=== PATIENT | male | born 1945 | race Asian ===

== ENCOUNTER → 2017-03-11 | Outpatient (CLI) | payer OTHER ==
[~2017-03-11] MED LIST: ALBUAER2 INH; ASPCH81X PO; ATOR-54 PO; ATV/1 PO; BUSP5TAB59 PO; CYCL5TAB PO; FERR18TA2 PO; FLUT0.15 NAE; LEVO-14 PO; MULTTAB5 PO; OPTIRAY 320 IV PRN; PRT/20 PO
--- NOTE | 2017-03-11 12:11 | DIAGNOSTIC IMAGING REPORT ---
CT soft tissue neck SOFT TISSUE NECK WITH CLINICAL HISTORY: MULTIPLE MYELOMA TECHNIQUE: Transaxial acquisition with multi axial reformatted images COMPARISON STUDY: 08/19/2007 FINDINGS: Major salivary glands are symmetric. There is no significant cervical adenopathy. Sternocleidomastoid musculature is symmetric. Glottic and subglottic regions are unremarkable. His note is made of a lipoma surrounding the posterior left mandible. Note is made of lytic defects involving the left central aspect of C2 and associated posterior arch. Minimal findings seen in the right posterior arch of C4. There is small lucency posterior aspect of the C4 unchanged from the prior study. There is a small lucency involving the posterior aspect of C3 also similar. IMPRESSION: 1. Findings consistent with developing bony metastatic change primarily from C2 through C4. 2. Most prominent findings appear to involve the left central aspect of the C2 vertebral body. 3. The Remainder of the soft tissue neck is unremarkable. Electronically signed by: Ean King M.D. 03/11/2017 12:09 PM Dictated Date/Time: 03/11/2017 12:02 PM
== END | disposition home or self-care (01) ==
LOC: C.CTS 11:23
PROVIDERS: ATTEND Internal Medicine Hematology & Oncology
DX: C90.00 Multiple myeloma not having achieved remission (principal)

== ENCOUNTER → 2017-04-01 | Outpatient (CLI) | payer OTHER ==
[~2017-04-01] MED LIST changes: -OPTIRAY 320 IV PRN
--- NOTE | 2017-04-01 10:19 | DIAGNOSTIC IMAGING REPORT ---
SKELETAL SURVEY COMPLETE CLINICAL HISTORY: C90.0,MUTIPLE MYELOMA. COMPARISON STUDY: Chest 12/01/2014. FINDINGS: 17 images. The lungs are clear. The heart is normal in size. Right high convexity craniectomy defect with overlying metallic mesh. Severe disc space narrowing at L4-L5 and mild disc space narrowing at L5-S1. No fractures within the spine. No suspicious lytic or blastic osseous lesions within the visualized osseous structures. The lucent lesions within the cervical spine seen on the prior neck CT are not well identified by this modality. IMPRESSION: 1. Large defect within the right high convexity of the calvarium consistent with postoperative changes. 2. The lucent lesions seen within the cervical spine on the prior study are not well evaluated by this modality. 3. No suspicious lytic or blastic osseous lesions within the visualized osseous structures Electronically signed by: Jhon Stockton M.D. 04/01/2017 10:17 AM Dictated Date/Time: 04/01/2017 10:11 AM
== END | disposition home or self-care (01) ==
LOC: C.RAD 08:56
PROVIDERS: ATTEND Nurse Practitioner Family
DX: C90.00 Multiple myeloma not having achieved remission (principal)

== ENCOUNTER → 2017-04-08 | Outpatient (CLI) | payer OTHER ==
--- NOTE | 2017-04-08 14:16 | DIAGNOSTIC IMAGING REPORT ---
ULTRASOUND-GUIDED FINE-NEEDLE ASPIRATION BIOPSY OF A RIGHT PAROTID NODULE CLINICAL HISTORY: K11.9 parotid mass COMPARISON STUDY: CT scan dated 03/11/2017, outside CT scan dated 04/07/2016, outside MRI the brain dated 03/26/2016. FINDINGS: The study was scheduled for Dr. Rich to perform. Dr. Rich was unfortunately on vacation. After discussing the situation with the patient, the patient elected to proceed with the biopsy. The patient was referred for possible bilateral parotid biopsy. An ultrasound was performed which revealed a right anterior lobe parotid mass. No parotid mass was visualized on the left. Review of the prior CT scan revealed a left-sided masseter muscle lipoma. There were no targetable lesions for a left-sided ultrasound-guided biopsy. The risks of the procedure were explained to the patient and informed consent was obtained. The patient was prepped in a sterile fashion. The skin over the patient's right parotid gland nodule was anesthetized with 1% lidocaine. Under ultrasound guidance, 2 passes into the patient's right parotid gland nodule were performed utilizing a 25-gauge needle. There were no immediate complications. Preliminary pathologic review indicated satisfactory material for diagnosis. IMPRESSION: Successful ultrasound-guided fine-needle aspiration of a right parotid nodule Electronically signed by: José Miguel Daigle M.D. 04/08/2017 2:14 PM Dictated Date/Time: 04/08/2017 2:08 PM
== END | disposition home or self-care (01) ==
LOC: C.ULTR 12:54
DX: K11.9 Disease of salivary gland, unspecified (principal)

== ENCOUNTER → 2017-06-03 | Outpatient (CLI) | payer OTHER | END | disposition home or self-care (01) | LOC: C.LABSPEC 17:09 | PROVIDERS: ATTEND Internal Medicine | DX: E55.9 Vitamin D deficiency, unspecified (principal); G47.62 Sleep related leg cramps; C90.00 Multiple myeloma not having achieved remission ==

== ENCOUNTER → 2017-11-04 | Outpatient (CLI) | payer OTHER ==
[2017-11-04 09:37] LABS: HEMOGLOBIN A1C 6.2 % (4.5-5.6)
== END | disposition home or self-care (01) ==
LOC: C.LAB 10:39
PROVIDERS: ATTEND Internal Medicine
DX: E11.9 Type 2 diabetes mellitus without complications (principal); E78.5 Hyperlipidemia, unspecified

== ENCOUNTER 2017-12-22 11:59 | Inpatient (IN) | payer OTHER ==
[~2017-12-22] VITALS: Ht 162.6 cm; Wt 63.9 kg
[~2017-12-22 11:59] MED LIST changes: -ATOR-54 PO; -FERR18TA2 PO; -LEVO-14 PO; -MULTTAB5 PO
[2017-12-22] MEDS ORDERED: BUSP5TAB59 PO (12:21)
[2017-12-22] MEDS ORDERED: GUAISYP4 PO (12:21)
[2017-12-22] MEDS ORDERED: [UNRECOGNIZED DRUG - CODE] (12:21)
[2017-12-22] MEDS ORDERED: LEVO-366 PO (12:21)
[2017-12-22] MEDS ORDERED: PHEN-880 (12:21)
[2017-12-22] MEDS ORDERED: ALBU18002 INH (12:21)
[2017-12-22] MEDS ORDERED: LENA2.5C PO (12:21)
[2017-12-22] MEDS ORDERED: SODIUM CHLORIDE 0.9% 1000ML 1,000 ML IV STA ×3 (12:25→15:29)
[2017-12-22] MEDS ORDERED: ALBUT/IPRATROP 3MG/0.5MG NEB 3 ML VIAL INH STA (12:25)
[2017-12-22] MEDS ORDERED: FENTANYL CITRATE INJ 50 MCG/1 ML 2 ML VIAL IV STA (12:31)
[2017-12-22] MEDS ORDERED: OPTIRAY 320 IV PRN (12:45)
--- NOTE | 2017-12-22 12:56 | DIAGNOSTIC IMAGING REPORT ---
CHEST ONE VIEW PORTABLE CLINICAL HISTORY: Atypical chest pain COMPARISON STUDY: No previous studies for comparison. FINDINGS: The cardiac and mediastinal contours are normal. There is no evidence of focal pulmonary consolidation. There is no evidence of failure. No pleural effusions are visualized.[ There is very slight prominence the basal interstitial markings, likely atelectatic. IMPRESSION: No active disease in the chest. Electronically signed by: José Miguel Daigle M.D. 12/22/2017 12:55 PM Dictated Date/Time: 12/22/2017 12:54 PM
[2017-12-22] MEDS ORDERED: MULTTAB5 PO (13:18)
[2017-12-22] MEDS ORDERED: FERR18TA2 PO (13:18)
[2017-12-22 13:24] LABS: BASO % 0.2 %; BASO ABS # 0.01 K/uL (0-0.2); HEMATOCRIT 42.7 % (42-52); HEMOGLOBIN 14.7 g/dL (14.0-18.0); IG# 0.01 K/uL (0.00-0.02); LYMPH % 12.8 %; LYMPH ABS # 0.69 K/uL (1.2-3.4); MEAN CELL VOLUME 94.9 fL (80-100); MEAN CORPUSCULAR HEMOGLOBIN 32.7 pg (25-34); MEAN CORPUSCULAR HGB CONC 34.4 g/dl (32-36); NEUT % 73.8 %; NEUT ABS # 3.98 K/uL (1.4-6.5); PLATELET COUNT 104 K/uL (130-400); RED CELL DISTRIBUTION WIDTH CV 13.9 % (11.5-14.5); RED CELL DISTRIBUTION WIDTH SD 48.1 fL (36.4-46.3); WHITE BLOOD COUNT 5.39 K/uL (4.8-10.8)
[2017-12-22 13:45] LABS: ALBUMIN 3.8 gm/dl (3.4-5.0); ALT/SGPT 85 U/L (12-78); AST/SGOT 37 U/L (15-37); BLOOD UREA NITROGEN 21 mg/dl (7-18); CALCIUM 9.2 mg/dl (8.5-10.1); CARBON DIOXIDE 24 mmol/L (21-32); CREATININE 1.25 mg/dl (0.60-1.40); GLUCOSE 137 mg/dl (70-99); LIPASE 82 U/L (73-393); SODIUM 131 mmol/L (136-145)
[2017-12-22 13:50] LABS: ALKALINE PHOSPHATASE 62 U/L (45-117)
--- NOTE | 2017-12-22 14:29 | DIAGNOSTIC IMAGING REPORT ---
(CHEST FOR PE) ANGIO WITH CT DOSE: 384.34 mGycm HISTORY: 72 years-old Male with acute dyspnea and chest pain. TECHNIQUE: Multiple CTA images of the chest were obtained after the intravenous administration of ml Optiray 320. Coronal and sagittal MIPS were obtained from the axial data set and were submitted for review. A dose lowering technique was utilized adhering to the principles of ALARA. COMPARISON: Chest radiograph 12/22/2017, CT chest 08/19/2007. FINDINGS: CTA: There is mild multichamber cardiac enlargement. No pericardial effusion. Coronary arterial disease. Thoracic aorta is normal in both course and caliber without aneurysm or dissection. Mild to moderate mixed plaquing of the thoracic aortic arch and proximal great vessels which appear to be patent. Mild tortuosity of the descending thoracic aorta. The pulmonary arterial tree is opacified to level of the subsegmental branches and demonstrates no focal filling defects to suggest pulmonary thromboembolic disease. CT CHEST: Thyroid appears homogeneous without dominant nodule. No pathologic adenopathy of the chest identified. No pneumothorax or pleural effusion. Moderate emphysema. Multifocal groundglass and consolidative opacities within a bronchovascular distribution are noted within the basal left lower lobe, primarily involving the posterior basal and anteromedial basal segments. To a lesser degree, there is minimal bronchovascular distribution of groundglass opacities within the basal right lower lobe. No suspicious pulmonary nodules or masses identified. Central airways are patent. No acute abnormality of the imaged upper abdomen. Prior cholecystectomy. Nodular thickening of the adrenal glands with 1.8 cm low attenuating left adrenal gland lesion suggesting adenoma. Probable adenoma on the right as well, 1.5 cm. Soft tissues are unremarkable. The bones appear intact. IMPRESSION: 1. Bronchovascular distribution of groundglass and consolidative opacities within the basal segments of the left greater than right lower lobes suggest bronchopneumonia or less likely aspiration pneumonitis. 2. No acute aortic pathology or evidence of pulmonary thromboembolic disease. 3. Emphysema. 4. No pathologic adenopathy. The above report was generated using voice recognition software. It may contain grammatical, syntax or spelling errors. Electronically signed by: Temo Thao M.D. 12/22/2017 2:28 PM Dictated Date/Time: 12/22/2017 2:20 PM
[2017-12-22 14:33] LABS: INFLUENZA A PCR Neg for Influ A (NEG); INFLUENZA B PCR Neg for Influ B (NEG)
[2017-12-22] MEDS ORDERED: CEFEPIME IV 2,000 MG in DEXTROSE 5% 100ML 100 ML IV STA (15:28)
--- NOTE | 2017-12-22 15:34 | EMERGENCY ROOM VISIT NOTE ---
History Report prepared by Maritza: Kevin Akins Under the Supervision of: Dr. Thad Galvan M.D. First contact with patient: 12:21 Chief Complaint: COUGH Stated Complaint: CRAMPING RIB CAGES History of Present Illness The patient is a 72 year old male who presents to the Emergency Room with complaints of a persistent cough beginning three weeks ago. The patient also complains of a "cramping" pain in his bilateral ribs (worse on right), and occasionally in his neck which began a few days ago. His pain is only present with coughing. He feels short of breath as well. The patient has a history of multiple myeloma for which he is currently receiving chemotherapy. He was diagnosed with a sinus infection by his PCP recently and was started on antibiotics. Nothing has improved his symptoms. He is on aspirin, but denies use of any other blood thinners. The patient has no history of blood clots or recent surgery. He denies fevers, or chills. He sees Dr. Mcdonald of oncology for his cancer treatment. The patient is a former smoker (quit 22 years ago). He has used inhalers, Mucinex, and Neti-spray at home. Source of History: patient Onset: Three weeks ago Quality: other (cough) Timing: other (persistent) Modifying Factors (Relieving): other (none) Associated Symptoms: + SOB, No fevers, No chills Note: The patient also complains of a "cramping" pain in his bilateral ribs (worse on right), and occasionally in his neck which began a few days ago Review of Systems See HPI for pertinent positives and negatives. A total of ten systems were reviewed and were otherwise negative. Past Medical & Surgical Medical Problems: (1) DM type 2 (diabetes mellitus, type 2) (2) GERD (gastroesophageal reflux disease) (3) Hypertension (4) Multiple myeloma Surgical Problems: (1) H/O arthroscopic knee surgery (2) H/O sinus surgery (3) History of carpal tunnel surgery (4) History of cholecystectomy (5) Hx of cholecystectomy (6) S/P bunionectomy Family History Diabetes mellitus FH: cancer FH: heart disease Hypertension Social History Smoking Status: Never Smoker Alcohol Use: occasionally Marital Status: Housing Status: lives with family Occupation Status: employed Current/Historical Medications Scheduled Acyclovir (Acyclovir), 1 TAB PO DAILY Aspirin (Aspirin Chewable), 81 MG PO QPM Atorvastatin (Lipitor), 1 TAB PO DAILY Buspirone Hcl (Buspirone Hcl), 5 MG PO DAILY Buspirone Hcl (Buspirone Hcl), 10 MG PO QPM Calcium/Vitamin D (Os-Mauricio 500 Plus D), 1 TAB PO BID Fexofenadine Hcl (Almita Allergy), 1 TAB PO DAILY Fluticasone Propionate (Nasal) (Flonase Allergy Relief), 1 SPRAY ASHLEY QAM Lenalidomide (Revlimid), 5 MG PO DAILY Levofloxacin (Levaquin), 500 MG PO DAILY Multiple Vitamins W/ Minerals (Centrum), 1 TAB PO DAILY Scheduled PRN Albuterol Sulfate (Proair Respiclick), 2 PUFF INH QID PRN for SOB/Wheezing Cyclobenzaprine Hcl (Flexeril), 5 MG PO HS PRN for PRN Esomeprazole Magnesium (Nexium), 1 CAP PO DAILY PRN for Dyspepsia Guaifenesin/Codeine (Robitussin-Ac Syrup), 5 ML PO Q4H PRN for Cough Lorazepam (Ativan), 1 MG PO TID PRN for Anxiety Pseudoephedrine-Guaifenesin (Mucinex D), 1 TAB PO BID PRN for Cough Miscellaneous Medications Zoledronic Acid (Zometa) Allergies Coded Allergies: Adhesives (Verified Allergy, Mild, RASH, 06/01/16) bandaides cause rash NO KNOWN DRUG ALLERGIES (Verified Allergy, Mild, ., 06/01/16) Physical Exam Vital Signs Date Time Temp Pulse Resp B/P (MAP) Pulse Ox O2 Delivery O2 Flow Rate FiO2 12/22/17 16:14 100 20 126/77 97 Room Air 12/22/17 15:09 75 20 117/59 95 Room Air 12/22/17 14:23 94 30 125/77 97 Room Air 12/22/17 12:34 94 Room Air 12/22/17 12:33 91 12/22/17 12:05 36.4 110 20 122/80 94 Room Air Physical Exam GENERAL: Awake, alert, fatigued, uncomfortable-appearing, in no distress HENT: Normocephalic, atraumatic. Oropharynx unremarkable other than dry mucous membranes. EYES: Normal conjunctiva. Sclera non-icteric. NECK: Supple. No nuchal rigidity. FROM. No JVD. RESPIRATORY: Diminished at bases and otherwise clear to auscultation. CARDIAC: Regular rate, normal rhythm. Extremities warm and well perfused. Pulses equal. ABDOMEN: Soft, non-distended. No tenderness to palpation. No rebound or guarding. No masses. RECTAL: Deferred. MUSCULOSKELETAL: Chest examination reveals no tenderness. The back is symmetrical on inspection without obvious abnormality. There is no CVA tenderness to palpation. No joint edema. LOWER EXTREMITIES: Calves are equal size bilaterally and non-tender. No edema. No discoloration. NEURO: Normal sensorium. No sensory or motor deficits noted. SKIN: No rash or jaundice noted. Medical Decision & Procedures ER Provider Diagnostic Interpretation: Radiology results as stated below per my review and radiologist interpretation: (CHEST FOR PE) ANGIO WITH FINDINGS: CTA: There is mild multichamber cardiac enlargement. No pericardial effusion. Coronary arterial disease. Thoracic aorta is normal in both course and caliber without aneurysm or dissection. Mild to moderate mixed plaquing of the thoracic aortic arch and proximal great vessels which appear to be patent. Mild tortuosity of the descending thoracic aorta. The pulmonary arterial tree is opacified to level of the subsegmental branches and demonstrates no focal filling defects to suggest pulmonary thromboembolic disease. CT CHEST: Thyroid appears homogeneous without dominant nodule. No pathologic adenopathy of the chest identified. No pneumothorax or pleural effusion. Moderate emphysema. Multifocal groundglass and consolidative opacities within a bronchovascular distribution are noted within the basal left lower lobe, primarily involving the posterior basal and anteromedial basal segments. To a lesser degree, there is minimal bronchovascular distribution of groundglass opacities within the basal right lower lobe. No suspicious pulmonary nodules or masses identified. Central airways are patent. No acute abnormality of the imaged upper abdomen. Prior cholecystectomy. Nodular thickening of the adrenal glands with 1.8 cm low attenuating left adrenal gland lesion suggesting adenoma. Probable adenoma on the right as well, 1.5 cm. Soft tissues are unremarkable. The bones appear intact. IMPRESSION: 1. Bronchovascular distribution of groundglass and consolidative opacities within the basal segments of the left greater than right lower lobes suggest bronchopneumonia or less likely aspiration pneumonitis. 2. No acute aortic pathology or evidence of pulmonary thromboembolic disease. 3. Emphysema. 4. No pathologic adenopathy. The above report was generated using voice recognition software. It may contain grammatical, syntax or spelling errors. Electronically signed by: Temo Thao M.D. 12/22/2017 2:28 PM CHEST ONE VIEW PORTABLE FINDINGS: The cardiac and mediastinal contours are normal. There is no evidence of focal pulmonary consolidation. There is no evidence of failure. No pleural effusions are visualized.[ There is very slight prominence the basal interstitial markings, likely atelectatic. IMPRESSION: No active disease in the chest. Electronically signed by: José Miguel Daigle M.D. 12/22/2017 12:55 PM Laboratory Results 12/22/17 13:05 Red Blood Count 4.50, Mean Corpuscular Volume 94.9, Mean Corpuscular Hemoglobin 32.7, Mean Corpuscular Hemoglobin Concent 34.4, Mean Platelet Volume 9.0, Neutrophils (%) (Auto) 73.8, Lymphocytes (%) (Auto) 12.8, Monocytes (%) (Auto) 13.0, Eosinophils (%) (Auto) 0.0, Basophils (%) (Auto) 0.2, Neutrophils # (Auto ) 3.98, Lymphocytes # (Auto) 0.69, Monocytes # (Auto) 0.70, Eosinophils # (Auto ) 0.00, Basophils # (Auto) 0.01 12/22/17 13:05 Test 12/22/17 13:04 12/22/17 13:05 12/22/17 16:00 Influenza Type A (RT-PCR) Neg for Influ A (NEG) Influenza Type B (RT-PCR) Neg for Influ B (NEG) White Blood Count 5.39 K/uL (4.8-10.8) Red Blood Count 4.50 M/uL (4.7-6.1) Hemoglobin 14.7 g/dL (14.0-18.0) Hematocrit 42.7 % (42-52) Mean Corpuscular Volume 94.9 fL (80-100) Mean Corpuscular Hemoglobin 32.7 pg (25-34) Mean Corpuscular Hemoglobin Concent 34.4 g/dl (32-36) Platelet Count 104 K/uL (130-400) Mean Platelet Volume 9.0 fL (7.4-10.4) Neutrophils (%) (Auto) 73.8 % Lymphocytes (%) (Auto) 12.8 % Monocytes (%) (Auto) 13.0 % Eosinophils (%) (Auto) 0.0 % Basophils (%) (Auto) 0.2 % Neutrophils # (Auto) 3.98 K/uL (1.4-6.5) Lymphocytes # (Auto) 0.69 K/uL (1.2-3.4) Monocytes # (Auto) 0.70 K/uL (0.11-0.59) Eosinophils # (Auto) 0.00 K/uL (0-0.5) Basophils # (Auto) 0.01 K/uL (0-0.2) RDW Standard Deviation 48.1 fL (36.4-46.3) RDW Coefficient of Variation 13.9 % (11.5-14.5) Immature Granulocyte % (Auto) 0.2 % Immature Granulocyte # (Auto) 0.01 K/uL (0.00-0.02) Anion Gap 9.0 mmol/L (3-11) Est Creatinine Clear Calc Drug Dose 44.8 ml/min Estimated GFR () 66.3 Estimated GFR (Non- 57.2 BUN/Creatinine Ratio 16.6 (10-20) Calcium Level 9.2 mg/dl (8.5-10.1) Total Bilirubin 0.6 mg/dl (0.2-1) Direct Bilirubin 0.2 mg/dl (0-0.2) Aspartate Amino Transf (AST/SGOT) 37 U/L (15-37) Alanine Aminotransferase (ALT/SGPT) 85 U/L (12-78) Alkaline Phosphatase 62 U/L (45-117) Troponin I < 0.015 ng/ml (0-0.045) Pro-B-Type Natriuretic Peptide 80 pg/ml (0-900) Total Protein 8.0 gm/dl (6.4-8.2) Albumin 3.8 gm/dl (3.4-5.0) Lipase 82 U/L (73-393) Lactic Acid Level 2.0 mmol/L (0.4-2.0) Laboratory results reviewed by me Medications Administered Medications (Trade) Dose Ordered Sig/Rolando Route Start Time Stop Time Status Last Admin Dose Admin Sodium Chloride 1,000 ml @ 999 mls/hr Q1H1M STAT IV 12/22/17 12:25 12/22/17 13:25 DC 12/22/17 13:17 999 MLS/HR Albuterol/ Ipratropium (Duoneb) 3 ml NOW STAT INH 12/22/17 12:25 12/22/17 12:32 DC 12/22/17 12:58 3 ML Fentanyl Citrate (Fentanyl Inj) 50 mcg NOW STAT IV 12/22/17 12:31 12/22/17 12:34 DC 12/22/17 13:15 50 MCG Sodium Chloride 1,000 ml @ 999 mls/hr Q1H1M STAT IV 12/22/17 12:31 12/22/17 13:31 DC 12/22/17 13:19 999 MLS/HR Cefepime HCl 2000 mg/Dextrose 122 ml @ 200 mls/hr NOW STAT IV 12/22/17 15:28 12/22/17 16:04 DC 12/22/17 16:13 200 MLS/HR Sodium Chloride 1,000 ml @ 999 mls/hr Q1H1M STAT IV 12/22/17 15:29 12/22/17 16:29 DC 12/22/17 15:58 999 MLS/HR ECG Per My Interpretation Indication: chest pain Rate (beats per minute): 89 Rhythm: normal sinus Findings: other (Normal axis. No ST elevation.) ED Course 1223: The patient was evaluated in room C5. A complete history and physical exam was performed. 1525: Upon reexamination, the patient was resting comfortably. I discussed the test results and treatment plan with him. The patient will be evaluated for further management. Medical Decision I reviewed the patient's past medical history, medications, and the nursing notes as described above. Differential diagnosis: Etiologies such as cardiac ischemia, aortic dissection, pulmonary embolism, pneumonia, pneumothorax, musculoskeletal, infections, pericarditis, myocarditis , esophageal rupture, gastrointestinal, as well as others were entertained. The patient is a 72-year-old gentleman with a past medical history of multiple myeloma currently undergoing treatment with Revlimid presents emergency department with worsening right-sided chest pain in the setting of cough congestion that has been ongoing for several weeks recently put on a oral course of Levaquin on Tuesday per hpi. On arrival the patient is fatigued appearing but no acute distress, afebrile stable vital signs. EKG is unremarkable. WBC within normal limits. Patient has mild ZAY with creatinine 1.2 and BUN of [address] PE negative for PE however does demonstrate bilateral bronchial pneumonia. The patient's age, and comorbidities of multiple myeloma on treatment, the setting of these findings with a curb 65 score of 2 will admit the patient for IV antibiotics. Given worsening symptoms in the setting of being on Levaquin will broaden coverage to cefepime. MRSA screen ordered to help inform possible need for vancomycin. Blood cultures ordered. Lactate 2.0. Case was discussed with Jaja Amaral PA-C, who admit the patient for further management. Medication Reconcilliation Current Medication List: was personally reviewed by me Blood Pressure Screening Patient's blood pressure: Normal blood pressure Blood pressure disposition: Did not require urgent referral Consults Time Called: 1525 Consulting Physician: Natalie Wilkinson Hospitalist Returned Call: 1530 I discussed the patient with Natalie Wilkinson will evaluate the patient for further treatment. Impression Primary Impression: Bronchopneumonia Scribe Attestation The scribe's documentation has been prepared under my direction and personally reviewed by me in its entirety. I confirm that the note above accurately reflects all work, treatment, procedures, and medical decision making performed by me. Departure Information Dispostion Being Evaluated By Hospitalist Referrals Maryann Vernon M.D. (PCP) Patient Instructions My [facility]
[2017-12-22] MEDS ORDERED: CONSULT PHARMACY STA (16:27)
[2017-12-22] MEDS ORDERED: ONDANSETRON INJ 2 MG/ML 2 ML VIAL IV PRN (16:30)
[2017-12-22] MEDS ORDERED: ENOXAPARIN 40 MG/0.4 ML SYR SQ SCH (16:30)
[2017-12-22] MEDS ORDERED: CALC500C70 PO (16:33)
[2017-12-22] MEDS ORDERED: PSEU60TA80 PO (16:33)
[2017-12-22] MEDS ORDERED: ATOR-24 PO (16:33)
[2017-12-22] MEDS ORDERED: FEXO1TAB49 PO (16:33)
[2017-12-22] MEDS ORDERED: ACYC400T PO (16:33)
[2017-12-22] MEDS ORDERED: NXM/40 PO (16:33)
[2017-12-22] MEDS ORDERED: CEFEPIME CONSULT ACTIVE PRN (17:45)
[2017-12-22] MEDS: GUAIFENESIN/CODEINE 200MG/20MG 10ML UDC PO PRN ×2 (17:56→22:12)
[2017-12-22] MEDS: ACETAMINOPHEN 325 MG TAB PO PRN ×2 (17:57→22:13)
[2017-12-22] MEDS: SODIUM CHLORIDE 0.9% 1000ML 1,000 ML IV SCH (17:57)
[2017-12-22] MEDS ORDERED: ALBUT/IPRATROP 3MG/0.5MG NEB 3 ML VIAL INH PRN (18:15)
--- NOTE | 2017-12-22 18:31 | History and Physical ---
History & Physical Date & Time of Service: Dec 22, 2017 ~ 16:00 Chief Complaint: Cough Primary Care Physician: Dr. Vernon History of Present Illness 72-year-old male who presents to the ER with cough. Patient reports he has had a productive cough for the past 3 weeks. Cough is productive for yellow sputum. Patient has been seen as an outpatient and has been on amoxicillin, clarithromycin, Levaquin, and a course of prednisone. He reports no improvement in his symptoms with these medications. He denies fever and chills. He reports rib and chest pain with coughing. He denies shortness of breath. Has some mild lightheadedness and dizziness with standing too quickly however denies any syncopal events. Appetite has been poor for the past couple of days. He denies abdominal pain, nausea, vomiting, diarrhea. No urinary symptoms. In the ED, CT chest was completed that showing a bibasilar bronchopneumonia. Vital signs are stable. Labs unremarkable. Patient was given IV cefepime, IVF, IV fentanyl, and a neb treatment. 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/2016 positive Diagnosis multiple myeloma Status post completion of radiation therapy to the skull and C-spine 06/09/2016 Received 3000 cGy to each area Status: Chronic Surgical Problems: (1) H/O arthroscopic knee surgery Status: Chronic (2) H/O sinus surgery Status: Chronic (3) History of carpal tunnel surgery Status: Chronic (4) History of cholecystectomy Status: Resolved (5) Hx of cholecystectomy Status: Chronic (6) S/P bunionectomy Status: Chronic Family History Stroke FATHER Social History Smoking Status: Former Smoker Alcohol Use: occasionally Immunizations History of Influenza Vaccine: Yes Influenza Vaccine Date: Jun 14, 2017 History of Tetanus Vaccine?: Yes Tetanus Immunization Date: Jun 09, 2012 History of Pneumococcal: Yes Pneumococcal Date: February 05, 2016 Allergies Coded Allergies: Adhesives (Verified Allergy, Mild, RASH, 06/01/16) bandaides cause rash NO KNOWN DRUG ALLERGIES (Verified Allergy, Mild, ., 06/01/16) Home Medications Scheduled Acyclovir (Acyclovir), 1 TAB PO DAILY Aspirin (Aspirin Chewable), 81 MG PO QPM Atorvastatin (Lipitor), 1 TAB PO DAILY Buspirone Hcl (Buspirone Hcl), 5 MG PO DAILY Buspirone Hcl (Buspirone Hcl), 10 MG PO QPM Calcium/Vitamin D (Os-Mauricio 500 Plus D), 1 TAB PO BID Fexofenadine Hcl (Almita Allergy), 1 TAB PO DAILY Fluticasone Propionate (Nasal) (Flonase Allergy Relief), 1 SPRAY ASHLEY QAM Lenalidomide (Revlimid), 5 MG PO DAILY Levofloxacin (Levaquin), 500 MG PO DAILY Multiple Vitamins W/ Minerals (Centrum), 1 TAB PO DAILY Scheduled PRN Albuterol Sulfate (Proair Respiclick), 2 PUFF INH QID PRN for SOB/Wheezing Cyclobenzaprine Hcl (Flexeril), 5 MG PO HS PRN for PRN Esomeprazole Magnesium (Nexium), 1 CAP PO DAILY PRN for Dyspepsia Guaifenesin/Codeine (Robitussin-Ac Syrup), 5 ML PO Q4H PRN for Cough Lorazepam (Ativan), 1 MG PO TID PRN for Anxiety Pseudoephedrine-Guaifenesin (Mucinex D), 1 TAB PO BID PRN for Cough Miscellaneous Medications Zoledronic Acid (Zometa) Review of Systems ROS per HPI, all other systems reviewed and negative Physical Exam Vital Signs Date Time Temp Pulse Resp B/P (MAP) Pulse Ox O2 Delivery O2 Flow Rate FiO2 12/22/17 17:10 96 24 122/68 95 12/22/17 16:14 100 20 126/77 97 Room Air 12/22/17 15:09 75 20 117/59 95 Room Air 12/22/17 14:23 94 30 125/77 97 Room Air 12/22/17 12:34 94 Room Air 12/22/17 12:33 91 12/22/17 12:05 36.4 110 20 122/80 94 Room Air General Appearance: WD/WN, no apparent distress Head: normocephalic, atraumatic Eyes: normal inspection, EOMI, sclerae normal ENT: hearing grossly normal, + pertinent finding (Mucous membranes moist) Neck: supple, no JVD, trachea midline Respiratory/Chest: no respiratory distress, + decreased breath sounds Cardiovascular: regular rate, rhythm, no edema, normal peripheral pulses Abdomen/GI: normal bowel sounds, non tender, soft, no organomegaly Extremities/Musculoskelatal: normal inspection, no calf tenderness, normal capillary refill Neurologic/Psych: no motor/sensory deficits, alert, normal mood/affect, oriented x 3 Skin: normal color, warm/dry Diagnostics Laboratory Results Results Past 24 Hours Test 12/22/17 13:04 12/22/17 13:05 12/22/17 16:00 Range/Units Influenza Type A (RT-PCR) Neg for Influ A NEG Influenza Type B (RT-PCR) Neg for Influ B NEG White Blood Count 5.39 4.8-10.8 K/uL Red Blood Count 4.50 4.7-6.1 M/uL Hemoglobin 14.7 14.0-18.0 g/dL Hematocrit 42.7 42-52 % Mean Corpuscular Volume 94.9 80-100 fL Mean Corpuscular Hemoglobin 32.7 25-34 pg Mean Corpuscular Hemoglobin Concent 34.4 32-36 g/dl Platelet Count 104 130-400 K/uL Mean Platelet Volume 9.0 7.4-10.4 fL Neutrophils (%) (Auto) 73.8 % Lymphocytes (%) (Auto) 12.8 % Monocytes (%) (Auto) 13.0 % Eosinophils (%) (Auto) 0.0 % Basophils (%) (Auto) 0.2 % Neutrophils # (Auto) 3.98 1.4-6.5 K/uL Lymphocytes # (Auto) 0.69 1.2-3.4 K/uL Monocytes # (Auto) 0.70 0.11-0.59 K/uL Eosinophils # (Auto) 0.00 0-0.5 K/uL Basophils # (Auto) 0.01 0-0.2 K/uL RDW Standard Deviation 48.1 36.4-46.3 fL RDW Coefficient of Variation 13.9 11.5-14.5 % Immature Granulocyte % (Auto) 0.2 % Immature Granulocyte # (Auto) 0.01 0.00-0.02 K/uL Sodium Level 131 136-145 mmol/L Potassium Level 4.0 3.5-5.1 mmol/L Chloride Level 98 98-107 mmol/L Carbon Dioxide Level 24 21-32 mmol/L Anion Gap 9.0 3-11 mmol/L Blood Urea Nitrogen 21 7-18 mg/dl Creatinine 1.25 0.60-1.40 mg/dl Est Creatinine Clear Calc Drug Dose 44.8 ml/min Estimated GFR () 66.3 Estimated GFR (Non- 57.2 BUN/Creatinine Ratio 16.6 10-20 Random Glucose 137 70-99 mg/dl Calcium Level 9.2 8.5-10.1 mg/dl Total Bilirubin 0.6 0.2-1 mg/dl Direct Bilirubin 0.2 0-0.2 mg/dl Aspartate Amino Transf (AST/SGOT) 37 15-37 U/L Alanine Aminotransferase (ALT/SGPT) 85 12-78 U/L Alkaline Phosphatase 62 45-117 U/L Troponin I < 0.015 0-0.045 ng/ml Pro-B-Type Natriuretic Peptide 80 0-900 pg/ml Total Protein 8.0 6.4-8.2 gm/dl Albumin 3.8 3.4-5.0 gm/dl Lipase 82 73-393 U/L Lactic Acid Level 2.0 0.4-2.0 mmol/L Microbiology Results 12/22/17 Blood Culture, Received Pending 12/22/17 Blood Culture, Received Pending Diagnostic Radiology CT CHEST IMPRESSION: 1. Bronchovascular distribution of groundglass and consolidative opacities within the basal segments of the left greater than right lower lobes suggest bronchopneumonia or less likely aspiration pneumonitis. 2. No acute aortic pathology or evidence of pulmonary thromboembolic disease. 3. Emphysema. 4. No pathologic adenopathy. CXR IMPRESSION: No active disease in the chest. Impression Assessment and Plan Community-acquired pneumonia Immunocompromised patient -Admit to [facility] -Patient presenting with productive cough for 3 weeks, failed outpatient treatment; in the ED CT scan showing bibasilar bronchopneumonia -As an outpatient patient was on amoxicillin, clarithromycin and Levaquin; given patient's immunocompromised state with history of multiple myeloma status post stem cell transplant and currently on oral chemotherapy, will place patient on cefepime, check MRSA nasal swab and if positive will add vancomycin -Blood and sputum cultures -Afebrile, stable WBC -Influenza negative -Do not suspect sepsis History multiple myeloma -S/P stem cell transplant December 2016 -Case discussed with Dr. Mcdonald, will continue Revlimid Thrombocytopenia -Due to multiple myeloma and chemotherapy -Platelets at baseline, no signs of bleeding Depression -Continue buspirone Diet-controlled diabetes -Monitor BSG -Hgb A1c 6.2 11/2017 DVT prophylaxis -SCDs due to thrombocytopenia Disposition -In my clinical judgment this beneficiary meets acute admission criteria, established by [facility], that includes being hospitalized through two midnights. Attending addendum: Patient seen and examined care coordinated with Natalie stout PA-C This is a 72-year-old with history of multiple myeloma status post stem cell transplant presented to ER with productive cough for 3 weeks, failed outpatient treatment Physical exam: Please refer to physical exam by Natalie stout PA-C Assessment and plan: Pneumonia in the setting of immunocompromised patient: Multiple myeloma/status post stem cell transplant Remained stable hemodynamically Patient will be empirically treated with IV cefepime order for blood and sputum culture Discussed with hematology oncology Dr. Mcdonald patient will continue on Revlimid to prevent stem cell transplant withdrawal please refer to further documentation by Natalie stout PA-C for discussion of other chronic issues Lucille Otriz MD Resuscitation Status VTE Prophylaxis Will order VTE Prophylaxis: Yes
[2017-12-22 18:49] VITALS: BP 127/79; PULSE 89; TEMP 36.7; O2SAT 95; Ht 162.6 cm; Wt 63.9 kg
[2017-12-22] MEDS ORDERED: LEVO-14 PO (19:21)
[2017-12-22] MEDS ORDERED: ATOR-54 PO (19:21)
[2017-12-22] MEDS: CALCIUM 600MG + VIT D 400 IU TAB PO SCH (21:18)
[2017-12-22] MEDS: ASPIRIN 81 MG CHEW PO SCH (21:20)
[2017-12-23] VITALS: BP 116/67; PULSE 73; TEMP 36.6; O2SAT 95
[2017-12-23] MEDS ORDERED: LENALIDOMIDE 5 MG PO SCH
[2017-12-23] MEDS: CEFEPIME IV 2,000 MG in SYRINGE 7.5 ML IV SCH ×2 (03:48→15:50)
[2017-12-23] MEDS: GUAIFENESIN/CODEINE 200MG/20MG 10ML UDC PO PRN ×2 (03:58→08:12)
[2017-12-23] MEDS: ACETAMINOPHEN 325 MG TAB PO PRN ×2 (03:58→08:12)
[2017-12-23] MEDS: SODIUM CHLORIDE 0.9% 1000ML 1,000 ML IV SCH ×2 (05:41→17:21)
[2017-12-23 07:31] VITALS: BP 103/65; PULSE 64; TEMP 36.6; O2SAT 96
--- NOTE | 2017-12-23 07:58 | Clinical Documentation Query ---
Dr. MURPHY [facility] : CLINICAL DOCUMENTATION QUERY Patient is a 72 year old male admitted for evaluation and treatment of community acquired pneumonia in the setting of multiple myeloma undergoing chemotherapy. He is being treated with IV Cefepime. As appropriate, consider documentation as suggested below. Thank you. In your clinical opinion is this patient being managed for: ( ) (Possible) Gram negative pneumonia ( ) Not Agree ( ) Other explanation of clinical findings (Please Explain) ( ) Unable to determine (Please Define) ( ) Need to Discuss Haven't seen the patient yet. The medical record reflects the following clinical findings, treatment, and risk factors. Clinical Indicators: As above Treatment: IV Cefepime, sputum, blood cultures, chest radiograph, CT chest. Risk Factors: Age, multiple myeloma undergoing chemotherapy/immunosuppression. Please clarify and document your clinical opinion in the progress notes and discharge summary. Terms such as "probable", "suspected", "likely", "questionable", "possible", or "still to be ruled out" are acceptable. IF IN AGREEMENT, YOU MUST DOCUMENT ABOVE DIAGNOSTIC STATEMENT IN DAILY PROGRESS NOTES AND DISCHARGE SUMMARY. This document is not part of the patient's record. Thank You, Thiago Mccrary, RN [phone]
[2017-12-23 08:09] LABS: HEMATOCRIT 35.7 % (42-52); HEMOGLOBIN 11.9 g/dL (14.0-18.0); MEAN CELL VOLUME 96.2 fL (80-100); MEAN CORPUSCULAR HEMOGLOBIN 32.1 pg (25-34); MEAN CORPUSCULAR HGB CONC 33.3 g/dl (32-36); RED CELL DISTRIBUTION WIDTH CV 14.3 % (11.5-14.5); RED CELL DISTRIBUTION WIDTH SD 50.5 fL (36.4-46.3); WHITE BLOOD COUNT 4.18 K/uL (4.8-10.8)
[2017-12-23] MEDS: FEXOFENADINE HCL 180 MG TAB PO SCH (08:10)
[2017-12-23] MEDS: ATORVASTATIN 20 MG TAB PO SCH (08:11)
[2017-12-23] MEDS: ACYCLOVIR 400 MG TAB PO SCH (08:11)
[2017-12-23] MEDS: CEROVITE ADV FORMULA TAB PO SCH (08:11)
[2017-12-23] MEDS: CALCIUM 600MG + VIT D 400 IU TAB PO SCH ×2 (08:11→21:09)
[2017-12-23 08:40] LABS: MEAN PLATELET VOLUME 8.6 fL (7.4-10.4); PLATELET COUNT 80 K/uL (130-400)
[2017-12-23 08:46] LABS: CALCIUM 7.7 mg/dl (8.5-10.1); CREATININE 0.84 mg/dl (0.60-1.40)
[2017-12-23] MEDS ORDERED: HYDROCODONE/HOMATROPINE SYRUP 5MG/1.5MG 5ML UDP PO ONE (12:43)
[2017-12-23 15:04] VITALS: BP 113/69; PULSE 59; TEMP 36.7; O2SAT 95
--- NOTE | 2017-12-23 17:37 | Progress Note ---
Internal Med Progress Note Date of Service: Dec 23, 2017. Provider Documentation: SUBJECTIVE: The patient was seen and examined. Admitted with community-acquired pneumonia on chemotherapy Complains to have cough with pain involving the lower rib cage areas Shortness of breath on exertion No fever or chills and no nausea and/or vomiting OBJECTIVE: Vital Signs-as noted below Exam: General-no distress at rest Eyes-normal ENT-normal Neck-supple Lungs-decreased breath sounds at bases more on the right than the left Heart-S1-S2 regular, no murmur appreciated Abdomen-benign nontender no organomegaly Extremities-no edema Neuro-alert awake oriented 3, no focal sensory or motor deficit appreciated Lab data as noted below. ASSESSMENT & PLAN: Community-acquired pneumonia Immunocompromised patient -Patient presenting with productive cough for 3 weeks, failed outpatient treatment; in the ED CT scan showing bibasilar bronchopneumonia -As an outpatient patient was on amoxicillin, clarithromycin and Levaquin; -Given patient's immunocompromised state with history of multiple myeloma status post stem cell transplant and currently on oral chemotherapy, -Started on cefepime, check MRSA nasal swab and if positive will add vancomycin -Blood and sputum cultures-pending -Does not have any neutropenia and/or pancytopenia -Influenza negative -Do not suspect sepsis -We will add Hycodan to suppress cough History multiple myeloma -S/P stem cell transplant December 2016 -Case discussed with Dr. Mcdonald, will continue Revlimid -no acute issue Thrombocytopenia -Due to multiple myeloma and chemotherapy -Platelets at baseline, no signs of bleeding Depression -Continue buspirone Diet-controlled diabetes -Monitor BSG -Hgb A1c 6.2 11/2017 DVT prophylaxis -SCDs due to thrombocytopenia Disposition -In my clinical judgment this beneficiary meets acute admission criteria, established by [facility], that includes being hospitalized through two midnights. Vital Signs: Date Time Temp Pulse Resp B/P (MAP) Pulse Ox O2 Delivery O2 Flow Rate FiO2 12/23/17 16:00 Room Air 12/23/17 15:04 36.7 59 18 113/69 (84) 95 Room Air 12/23/17 09:52 Room Air 12/23/17 07:31 36.6 64 18 103/65 (78) 96 Room Air 12/23/17 00:00 Room Air 12/23/17 00:00 36.6 73 20 116/67 (83) 95 Room Air 12/22/17 18:49 36.7 89 18 127/79 95 Room Air Lab Results: Results Past 24 Hours Test 12/22/17 20:02 12/23/17 07:39 12/23/17 07:46 12/23/17 11:26 Range/Units Bedside Glucose 125 105 119 70-99 mg/dl White Blood Count 4.18 4.8-10.8 K/uL Red Blood Count 3.71 4.7-6.1 M/uL Hemoglobin 11.9 14.0-18.0 g/dL Hematocrit 35.7 42-52 % Mean Corpuscular Volume 96.2 80-100 fL Mean Corpuscular Hemoglobin 32.1 25-34 pg Mean Corpuscular Hemoglobin Concent 33.3 32-36 g/dl RDW Standard Deviation 50.5 36.4-46.3 fL RDW Coefficient of Variation 14.3 11.5-14.5 % Platelet Count 80 130-400 K/uL Mean Platelet Volume 8.6 7.4-10.4 fL Platelet Estimate DECREASED Sodium Level 138 136-145 mmol/L Potassium Level 4.0 3.5-5.1 mmol/L Chloride Level 108 98-107 mmol/L Carbon Dioxide Level 24 21-32 mmol/L Anion Gap 6.0 3-11 mmol/L Blood Urea Nitrogen 15 7-18 mg/dl Creatinine 0.84 0.60-1.40 mg/dl Est Creatinine Clear Calc Drug Dose 66.6 ml/min Estimated GFR () 101.4 Estimated GFR (Non- 87.5 BUN/Creatinine Ratio 17.7 10-20 Random Glucose 107 70-99 mg/dl Calcium Level 7.7 8.5-10.1 mg/dl Test 12/23/17 17:05 Range/Units Bedside Glucose 135 70-99 mg/dl Microbiology Results 12/22/17 MRSA DNA Surveillance Screen - Final, Complete Specimen Negative for MRSA by DNA Probe 12/22/17 Gram Stain - Final, Resulted 12/22/17 Sputum Culture - Preliminary, Resulted LIGHT NORMAL ISAURO Present, Final Rep...
[2017-12-23] MEDS: HYDROCODONE/HOMATROPINE SYRUP 5MG/1.5MG 5ML UDP PO PRN (19:43)
[2017-12-23] MEDS: ASPIRIN 81 MG CHEW PO SCH (21:08)
[2017-12-23] MEDS: LENALIDOMIDE 5 MG PO SCH (21:09)
[2017-12-23 22:31] VITALS: BP 119/71; PULSE 63; TEMP 36.8; O2SAT 94
[2017-12-24] MEDS: CEFEPIME IV 2,000 MG in SYRINGE 7.5 ML IV SCH ×2 (04:46→16:11)
[2017-12-24] MEDS: SODIUM CHLORIDE 0.9% 1000ML 1,000 ML IV SCH (04:53)
[2017-12-24 07:38] VITALS: BP 114/73; PULSE 63; TEMP 36.6; O2SAT 93
[2017-12-24] MEDS: ACYCLOVIR 400 MG TAB PO SCH (08:38)
[2017-12-24] MEDS: ATORVASTATIN 20 MG TAB PO SCH (08:38)
[2017-12-24] MEDS: CEROVITE ADV FORMULA TAB PO SCH (08:38)
[2017-12-24] MEDS: FEXOFENADINE HCL 180 MG TAB PO SCH (08:39)
[2017-12-24] MEDS: CALCIUM 600MG + VIT D 400 IU TAB PO SCH ×2 (08:39→21:00)
[2017-12-24] MEDS: HYDROCODONE/HOMATROPINE SYRUP 5MG/1.5MG 5ML UDP PO PRN ×3 (08:45→21:52)
[2017-12-24 09:04] LABS: HEMOGLOBIN 12.5 g/dL (14.0-18.0); MEAN CELL VOLUME 97.7 fL (80-100); MEAN CORPUSCULAR HEMOGLOBIN 31.3 pg (25-34); MEAN CORPUSCULAR HGB CONC 32.1 g/dl (32-36); RED CELL DISTRIBUTION WIDTH CV 14.1 % (11.5-14.5); RED CELL DISTRIBUTION WIDTH SD 50.5 fL (36.4-46.3); WHITE BLOOD COUNT 4.59 K/uL (4.8-10.8)
[2017-12-24 09:25] LABS: MEAN PLATELET VOLUME 9.3 fL (7.4-10.4); PLATELET COUNT 88 K/uL (130-400)
[2017-12-24 09:28] LABS: CALCIUM 8.2 mg/dl (8.5-10.1); CREATININE 0.91 mg/dl (0.60-1.40); POTASSIUM 3.6 mmol/L (3.5-5.1)
[2017-12-24 09:29] LABS: PHOSPHORUS 3.3 mg/dl (2.5-4.9)
--- NOTE | 2017-12-24 14:07 | Progress Note ---
Internal Med Progress Note Date of Service: Dec 24, 2017. Provider Documentation: SUBJECTIVE: The patient was seen and examined. Admitted with community-acquired pneumonia on chemotherapy Complains to have cough with pain involving the lower rib cage areas Shortness of breath on exertion No fever or chills and no nausea and/or vomiting Cough is a little better today OBJECTIVE: Vital Signs-as noted below Exam: General-no distress at rest Eyes-normal ENT-normal Neck-supple Lungs-decreased breath sounds at bases more on the right than the left Heart-S1-S2 regular, no murmur appreciated Abdomen-benign nontender no organomegaly Extremities-no edema Neuro-alert awake oriented 3, no focal sensory or motor deficit appreciated Lab data as noted below. ASSESSMENT & PLAN: Community-acquired pneumonia Immunocompromised patient -Patient presenting with productive cough for 3 weeks, failed outpatient treatment; in the ED CT scan showing bibasilar bronchopneumonia -As an outpatient patient was on amoxicillin, clarithromycin and Levaquin; -Given patient's immunocompromised state with history of multiple myeloma status post stem cell transplant and currently on oral chemotherapy, -Started on cefepime, check MRSA nasal swab and if positive will add vancomycin -Blood and sputum cultures-pending -Does not have any neutropenia and/or pancytopenia -Influenza negative -Do not suspect sepsis -We will add Hycodan to suppress cough -clinically a little better -still has SOB on minimal exertion History multiple myeloma -S/P stem cell transplant December 2016 -Case discussed with Dr. Mcdonald, will continue Revlimid -no acute issue now Thrombocytopenia -Due to multiple myeloma and chemotherapy -Platelets at baseline, no signs of bleeding -Platelets 88 today Depression -Continue buspirone Diet-controlled diabetes -Monitor BSG -Hgb A1c 6.2 11/2017 DVT prophylaxis -SCDs due to thrombocytopenia Disposition -In my clinical judgment this beneficiary meets acute admission criteria, established by [facility], that includes being hospitalized through two midnights. -Check CXR in AM Vital Signs: Date Time Temp Pulse Resp B/P (MAP) Pulse Ox O2 Delivery O2 Flow Rate FiO2 12/24/17 10:08 Room Air 12/24/17 07:38 36.6 63 18 114/73 (87) 93 Room Air 12/24/17 00:00 Room Air 12/23/17 22:31 36.8 63 18 119/71 (87) 94 Room Air 12/23/17 16:00 Room Air 12/23/17 15:04 36.7 59 18 113/69 (84) 95 Room Air Lab Results: Results Past 24 Hours Test 12/23/17 17:05 12/23/17 19:39 12/24/17 08:00 12/24/17 08:26 Range/Units Bedside Glucose 135 113 94 70-99 mg/dl White Blood Count 4.59 4.8-10.8 K/uL Red Blood Count 3.99 4.7-6.1 M/uL Hemoglobin 12.5 14.0-18.0 g/dL Hematocrit 39.0 42-52 % Mean Corpuscular Volume 97.7 80-100 fL Mean Corpuscular Hemoglobin 31.3 25-34 pg Mean Corpuscular Hemoglobin Concent 32.1 32-36 g/dl RDW Standard Deviation 50.5 36.4-46.3 fL RDW Coefficient of Variation 14.1 11.5-14.5 % Platelet Count 88 130-400 K/uL Mean Platelet Volume 9.3 7.4-10.4 fL Sodium Level 138 136-145 mmol/L Potassium Level 3.6 3.5-5.1 mmol/L Chloride Level 105 98-107 mmol/L Carbon Dioxide Level 27 21-32 mmol/L Anion Gap 6.0 3-11 mmol/L Blood Urea Nitrogen 14 7-18 mg/dl Creatinine 0.91 0.60-1.40 mg/dl Est Creatinine Clear Calc Drug Dose 61.5 ml/min Estimated GFR () 97.2 Estimated GFR (Non- 83.9 BUN/Creatinine Ratio 15.8 10-20 Random Glucose 88 70-99 mg/dl Calcium Level 8.2 8.5-10.1 mg/dl Phosphorus Level 3.3 2.5-4.9 mg/dl Magnesium Level 2.3 1.8-2.4 mg/dl Test 12/24/17 11:16 Range/Units Bedside Glucose 111 70-99 mg/dl
[2017-12-24 15:18] VITALS: BP 115/71; PULSE 69; TEMP 36.6; O2SAT 93
[2017-12-24] MEDS ORDERED: NURSING DECISION MEDICATION ORDER SCH (15:45)
[2017-12-24 16:00] VITALS: O2SAT 93
[2017-12-24] MEDS ORDERED: NURSING VERBAL MED ORDER ONE (16:15)
[2017-12-24] MEDS ORDERED: COUGH DROP (SUGAR FREE) LOZ 24 LOZ/1 BOX LOZ PRN (16:30)
[2017-12-24 19:36] VITALS: BP 109/65; PULSE 75; TEMP 36.7; O2SAT 92
[2017-12-24] MEDS: ASPIRIN 81 MG CHEW PO SCH (20:58)
[2017-12-24] MEDS ORDERED: BENZONATATE 100MG CAP PO ONE (21:00)
[2017-12-24] MEDS: LENALIDOMIDE 5 MG PO SCH (21:01)
[2017-12-24 22:50] VITALS: BP 106/61; PULSE 61; TEMP 36.8; O2SAT 93
[2017-12-25] MEDS: CEFEPIME IV 2,000 MG in SYRINGE 7.5 ML IV SCH (03:57)
[2017-12-25] MEDS: HYDROCODONE/HOMATROPINE SYRUP 5MG/1.5MG 5ML UDP PO PRN ×2 (03:57→10:29)
[2017-12-25 07:00] LABS: HEMATOCRIT 39.9 % (42-52); HEMOGLOBIN 13.4 g/dL (14.0-18.0); MEAN CELL VOLUME 95.7 fL (80-100); MEAN CORPUSCULAR HEMOGLOBIN 32.1 pg (25-34); MEAN CORPUSCULAR HGB CONC 33.6 g/dl (32-36); RED CELL DISTRIBUTION WIDTH SD 48.7 fL (36.4-46.3); WHITE BLOOD COUNT 3.35 K/uL (4.8-10.8)
[2017-12-25 07:13] LABS: MEAN PLATELET VOLUME 9.2 fL (7.4-10.4); PLATELET COUNT 74 K/uL (130-400)
[2017-12-25 07:47] LABS: CALCIUM 8.7 mg/dl (8.5-10.1); CREATININE 0.93 mg/dl (0.60-1.40); PHOSPHORUS 4.3 mg/dl (2.5-4.9)
[2017-12-25 07:50] VITALS: BP 105/67; PULSE 56; TEMP 36.5; O2SAT 93
[2017-12-25] MEDS: BENZONATATE 100MG CAP PO SCH ×2 (08:00→12:34)
[2017-12-25] MEDS: FEXOFENADINE HCL 180 MG TAB PO SCH (08:31)
[2017-12-25] MEDS: ATORVASTATIN 20 MG TAB PO SCH (08:31)
[2017-12-25] MEDS: CALCIUM 600MG + VIT D 400 IU TAB PO SCH (08:31)
[2017-12-25] MEDS: ACYCLOVIR 400 MG TAB PO SCH (08:32)
[2017-12-25] MEDS: CEROVITE ADV FORMULA TAB PO SCH (08:32)
[2017-12-25 08:55] LABS: POTASSIUM 3.6 mmol/L (3.5-5.1)
--- NOTE | 2017-12-25 09:41 | DIAGNOSTIC IMAGING REPORT ---
CHEST 2 VIEWS ROUTINE CLINICAL HISTORY: 72 years-old Male presenting with pneumonia. TECHNIQUE: PA and lateral views of the chest were obtained. COMPARISON: 12/22/[address] from 12/22/2016. FINDINGS: Atherosclerosis of the aortic arch. Cardiac silhouette normal in size. The previously demonstrated groundglass opacities in the left lower lobe on most recent CT and to a lesser extent the right lower lobe are not radiographically apparent. Lungs and pleural spaces are radiographically clear. Degenerative changes of the thoracic. Spine. Cholecystectomy clips noted. IMPRESSION: 1. Previously demonstrated patchy opacities in the lower lobes, left greater than right, not radiographically apparent. 2. Emphysema also not well demonstrated on on this radiograph. Electronically signed by: Robert Greene M.D. 12/25/2017 9:39 AM Dictated Date/Time: 12/25/2017 9:37 AM
--- NOTE | 2017-12-25 10:56 | Progress Note ---
Internal Med Progress Note Date of Service: Dec 25, 2017. Provider Documentation: SUBJECTIVE: The patient was seen and examined. Admitted with community-acquired pneumonia on chemotherapy 12/25 Cough is much bette4 today and exertional SOB is improved OBJECTIVE: Vital Signs-as noted below Exam: General-no distress at rest Eyes-normal ENT-normal Neck-supple Lungs-decreased breath sounds otherwise clear Heart-S1-S2 regular, no murmur appreciated Abdomen-benign nontender no organomegaly Extremities-no edema Neuro-alert awake oriented 3, no focal sensory or motor deficit appreciated Lab data as noted below. ASSESSMENT & PLAN: Community-acquired pneumonia Immunocompromised patient -Patient presenting with productive cough for 3 weeks, failed outpatient treatment; in the ED CT scan showing bibasilar bronchopneumonia -As an outpatient patient was on amoxicillin, clarithromycin and Levaquin; -Given patient's immunocompromised state with history of multiple myeloma status post stem cell transplant and currently on oral chemotherapy, -Started on cefepime, check MRSA nasal swab and if positive will add vancomycin -Blood and sputum cultures-pending -Does not have any neutropenia and/or pancytopenia -Influenza negative -Do not suspect sepsis -We will add Hycodan to suppress cough -clinically a lot better -Exertional SOB is better -CXR on 12/25 is not showing any infiltration -2 steps today ,likely discharge today History multiple myeloma -S/P stem cell transplant December 2016 -Case discussed with Dr. Mcdonald, will continue Revlimid -no acute issue now Thrombocytopenia -Due to multiple myeloma and chemotherapy -Platelets at baseline, no signs of bleeding -Platelets 88 today Depression -Continue buspirone Diet-controlled diabetes -Monitor BSG -Hgb A1c 6.2 11/2017 DVT prophylaxis -SCDs due to thrombocytopenia Disposition -In my clinical judgment this beneficiary meets acute admission criteria, established by [facility], that includes being hospitalized through two midnights. -Check CXR in AM-no pneumonia Discharge home today Vital Signs: Date Time Temp Pulse Resp B/P (MAP) Pulse Ox O2 Delivery O2 Flow Rate FiO2 12/25/17 09:01 Room Air 12/25/17 07:50 36.5 56 18 105/67 (80) 93 Room Air 12/24/17 23:50 Room Air 12/24/17 22:50 36.8 61 18 106/61 (76) 93 Room Air 12/24/17 19:36 36.7 75 20 109/65 (80) 92 Room Air 12/24/17 16:00 93 Room Air 12/24/17 15:18 36.6 69 18 115/71 (86) 93 Room Air Lab Results: Results Past 24 Hours Test 12/24/17 11:16 12/24/17 16:31 12/24/17 20:02 12/25/17 06:43 Range/Units Bedside Glucose 111 89 115 70-99 mg/dl White Blood Count 3.35 4.8-10.8 K/uL Red Blood Count 4.17 4.7-6.1 M/uL Hemoglobin 13.4 14.0-18.0 g/dL Hematocrit 39.9 42-52 % Mean Corpuscular Volume 95.7 80-100 fL Mean Corpuscular Hemoglobin 32.1 25-34 pg Mean Corpuscular Hemoglobin Concent 33.6 32-36 g/dl RDW Standard Deviation 48.7 36.4-46.3 fL RDW Coefficient of Variation 14.0 11.5-14.5 % Platelet Count 74 130-400 K/uL Mean Platelet Volume 9.2 7.4-10.4 fL Sodium Level 137 136-145 mmol/L Potassium Level 3.5-5.1 mmol/L Chloride Level 103 98-107 mmol/L Carbon Dioxide Level 30 21-32 mmol/L Anion Gap 4.0 3-11 mmol/L Blood Urea Nitrogen 13 7-18 mg/dl Creatinine 0.93 0.60-1.40 mg/dl Est Creatinine Clear Calc Drug Dose 60.2 ml/min Estimated GFR () 94.7 Estimated GFR (Non- 81.7 BUN/Creatinine Ratio 14.1 10-20 Random Glucose 98 70-99 mg/dl Calcium Level 8.7 8.5-10.1 mg/dl Phosphorus Level 4.3 2.5-4.9 mg/dl Magnesium Level 1.8-2.4 mg/dl Test 12/25/17 07:55 12/25/17 07:56 Range/Units Potassium Level 3.6 3.5-5.1 mmol/L Magnesium Level 2.2 1.8-2.4 mg/dl Bedside Glucose 103 70-99 mg/dl
[2017-12-25 13:24] VITALS: BP 105/67; PULSE 56; TEMP 36.5; O2SAT 93
[2017-12-25] MEDS ORDERED: LEVOFLOXACIN 750 MG TAB PO ONE (13:30)
[2017-12-25] MEDS ORDERED: HYCUDL5 PO (14:24)
--- NOTE | 2017-12-25 14:26 | Discharge Instructions ---
Discharge Instructions Date of Service Dec 25, 2017. Admission Reason for Admission: Pneumonia Discharge Discharge Diagnosis / Problem: Pneumonia Discharge Goals Goal(s): Prevent Disease Progression Activity Recommendations Activity Limitations: resume your previous activity . Instructions / Follow-Up Instructions / Follow-Up Dr Vernon on 12/29/17 at 12:45PM Current Hospital Diet Patient's current hospital diet: AHA Diet (Heart Healthy) Discharge Diet Recommended Diet: AHA Diet (Heart Healthy) Pending Studies Studies pending at discharge: no Laboratory Results Hemoglobin A1c Test 11/04/17 08:04 Range/Units Estimated Average Glucose 131 mg/dl Hemoglobin A1c 6.2 H 4.5-5.6 % Lipid Panel Test 11/04/17 08:04 Range/Units Triglycerides Level 86 0-150 mg/dl Cholesterol Level 137 0-200 mg/dl HDL Cholesterol 71 mg/dl Cholesterol/HDL Ratio 1.9 LDL Cholesterol, Calculated 49 mg/dl Medical Emergencies . Who to Call and When: Medical Emergencies: If at any time you feel your situation is an emergency, please call 911 immediately. . Non-Emergent Contact Non-Emergency issues call your: Primary Care Provider . Past History Medical & Surgical History: (1) Bronchopneumonia (2) GERD (gastroesophageal reflux disease) (3) Multiple myeloma (4) DM type 2 (diabetes mellitus, type 2) (5) S/P bunionectomy (6) H/O sinus surgery (7) H/O arthroscopic knee surgery (8) Hx of cholecystectomy (9) History of carpal tunnel surgery . "Provider Documentation" section prepared by Carolina Turner. .
--- NOTE | 2017-12-26 07:56 | Discharge Summary ---
Discharge Summary Date of Service Dec 26, 2017. Discharge Summary Admission Date: Dec 22, 2017 at 16:26 Discharge Date: Dec 25, 2017 Discharge Disposition: Home Principal Diagnosis: Pneumonia Secondary Diagnoses/Problems: Please see H&P and Hospital progress note Medication Reconciliation New Medications: Hydrocodone/Homatropine (Hydromet 5-1.5 mg/5Ml) 5 Ml/Cup Syrp 5 ML PO Q6H PRN for Cough for 5 Days, #20 DOSE Continued Medications: Acyclovir (Acyclovir) 400 Mg Tab 1 TAB PO DAILY for 30 Days, #30 TAB 3 Refills Albuterol Sulfate (Proair Respiclick) 108 Mcg/Act Aer 2 PUFF INH QID PRN for SOB/Wheezing Aspirin (Aspirin Chewable) 81 Mg Chew 81 MG PO QPM Atorvastatin (Lipitor) 40 Mg Tab 1 TAB PO DAILY for 30 Days, #30 TAB 5 Refills Buspirone Hcl (Buspirone Hcl) 5 Mg Tab 5 MG PO DAILY for 30 Days, #30 TAB Buspirone Hcl (Buspirone Hcl) 5 Mg Tab 10 MG PO QPM for 30 Days, TAB Calcium/Vitamin D (Os-Mauricio 500 Plus D) Tab 1 TAB PO BID, TAB Cyclobenzaprine Hcl (Flexeril) 5 Mg Tab 5 MG PO HS PRN for PRN, TAB PRN Esomeprazole Magnesium (Nexium) 40 Mg Cap 1 CAP PO DAILY PRN for Dyspepsia for 30 Days, #30 CAP 5 Refills Fexofenadine Hcl (Almita Allergy) 180 Mg Tab 1 TAB PO DAILY for 30 Days, #30 TAB 2 Refills Fluticasone Propionate (Nasal) (Flonase Allergy Relief) 50 Mcg/Act Spr 1 SPRAY ASHLEY QAM Guaifenesin/Codeine (Robitussin-Ac Syrup) Syrp 5 ML PO Q4H PRN for Cough for 6 Days, #120 ML Lenalidomide (Revlimid) 2.5 Mg Cap 5 MG PO DAILY Levofloxacin (Levaquin) 500 Mg Tab 500 MG PO DAILY Lorazepam (Ativan) 1 Mg Tab 1 MG PO TID PRN for Anxiety, TAB Multiple Vitamins W/ Minerals (Centrum) 1 Tab Tab 1 TAB PO DAILY Pseudoephedrine-Guaifenesin (Mucinex D) 1 Tab Tab 1 TAB PO BID PRN for Cough for 10 Days, #20 TAB Zoledronic Acid (Zometa) 4 Mg/5 Ml Inj Admission Information HPI (per Admitting provider): 72-year-old male who presents to the ER with cough. Patient reports he has had a productive cough for the past 3 weeks. Cough is productive for yellow sputum. Patient has been seen as an outpatient and has been on amoxicillin, clarithromycin, Levaquin, and a course of prednisone. He reports no improvement in his symptoms with these medications. He denies fever and chills. He reports rib and chest pain with coughing. He denies shortness of breath. Has some mild lightheadedness and dizziness with standing too quickly however denies any syncopal events. Appetite has been poor for the past couple of days. He denies abdominal pain, nausea, vomiting, diarrhea. No urinary symptoms. In the ED, CT chest was completed that showing a bibasilar bronchopneumonia. Vital signs are stable. Labs unremarkable. Patient was given IV cefepime, IVF, IV fentanyl, and a neb treatment. 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/2016 positive Diagnosis multiple myeloma Status post completion of radiation therapy to the skull and C-spine 06/09/2016 Received 3000 cGy to each area Status: Chronic Surgical Problems: (1) H/O arthroscopic knee surgery Status: Chronic (2) H/O sinus surgery Status: Chronic (3) History of carpal tunnel surgery Status: Chronic (4) History of cholecystectomy Status: Resolved (5) Hx of cholecystectomy Status: Chronic (6) S/P bunionectomy Status: Chronic Family History Stroke FATHER Social History Smoking Status: Former Smoker Alcohol Use: occasionally Immunizations History of Influenza Vaccine: Yes Influenza Vaccine Date: Jun 14, 2017 History of Tetanus Vaccine?: Yes Tetanus Immunization Date: Jun 09, 2012 History of Pneumococcal: Yes Pneumococcal Date: February 05, 2016 Allergies Coded Allergies: Adhesives (Verified Allergy, Mild, RASH, 06/01/16) bandaides cause rash NO KNOWN DRUG ALLERGIES (Verified Allergy, Mild, ., 06/01/16) Home Medications Scheduled Acyclovir (Acyclovir), 1 TAB PO DAILY Aspirin (Aspirin Chewable), 81 MG PO QPM Atorvastatin (Lipitor), 1 TAB PO DAILY Buspirone Hcl (Buspirone Hcl), 5 MG PO DAILY Buspirone Hcl (Buspirone Hcl), 10 MG PO QPM Calcium/Vitamin D (Os-Mauricio 500 Plus D), 1 TAB PO BID Fexofenadine Hcl (Almita Allergy), 1 TAB PO DAILY Fluticasone Propionate (Nasal) (Flonase Allergy Relief), 1 SPRAY ASHLEY QAM Lenalidomide (Revlimid), 5 MG PO DAILY Levofloxacin (Levaquin), 500 MG PO DAILY Multiple Vitamins W/ Minerals (Centrum), 1 TAB PO DAILY Scheduled PRN Albuterol Sulfate (Proair Respiclick), 2 PUFF INH QID PRN for SOB/Wheezing Cyclobenzaprine Hcl (Flexeril), 5 MG PO HS PRN for PRN Esomeprazole Magnesium (Nexium), 1 CAP PO DAILY PRN for Dyspepsia Guaifenesin/Codeine (Robitussin-Ac Syrup), 5 ML PO Q4H PRN for Cough Lorazepam (Ativan), 1 MG PO TID PRN for Anxiety Pseudoephedrine-Guaifenesin (Mucinex D), 1 TAB PO BID PRN for Cough Miscellaneous Medications Zoledronic Acid (Zometa) Review of Systems ROS per HPI, all other systems reviewed and negative Physical Exam H&P v2 Physical Exam Vital Signs Date Time Temp Pulse Resp B/P (MAP) Pulse Ox O2 Delivery O2 Flow Rate FiO2 12/22/17 17:10 96 24 122/68 95 12/22/17 16:14 100 20 126/77 97 Room Air 12/22/17 15:09 75 20 117/59 95 Room Air 12/22/17 14:23 94 30 125/77 97 Room Air 12/22/17 12:34 94 Room Air 12/22/17 12:33 91 12/22/17 12:05 36.4 110 20 122/80 94 Room Air General Appearance: WD/WN, no apparent distress Head: normocephalic, atraumatic Eyes: normal inspection, EOMI, sclerae normal ENT: hearing grossly normal, + pertinent finding (Mucous membranes moist) Neck: supple, no JVD, trachea midline Respiratory/Chest: no respiratory distress, + decreased breath sounds Cardiovascular: regular rate, rhythm, no edema, normal peripheral pulses Abdomen/GI: normal bowel sounds, non tender, soft, no organomegaly Extremities/Musculoskelatal: normal inspection, no calf tenderness, normal capillary refill Neurologic/Psych: no motor/sensory deficits, alert, normal mood/affect, oriented x 3 Skin: normal color, warm/dry Diagnostics H&P v2 Diagnostics Laboratory Results Results Past 24 Hours Test 12/22/17 13:04 12/22/17 13:05 12/22/17 16:00 Range/Units Influenza Type A (RT-PCR) Neg for Influ A NEG Influenza Type B (RT-PCR) Neg for Influ B NEG White Blood Count 5.39 4.8-10.8 K/uL Red Blood Count 4.50 4.7-6.1 M/uL Hemoglobin 14.7 14.0-18.0 g/dL Hematocrit 42.7 42-52 % Mean Corpuscular Volume 94.9 80-100 fL Mean Corpuscular Hemoglobin 32.7 25-34 pg Mean Corpuscular Hemoglobin Concent 34.4 32-36 g/dl Platelet Count 104 130-400 K/uL Mean Platelet Volume 9.0 7.4-10.4 fL Neutrophils (%) (Auto) 73.8 % Lymphocytes (%) (Auto) 12.8 % Monocytes (%) (Auto) 13.0 % Eosinophils (%) (Auto) 0.0 % Basophils (%) (Auto) 0.2 % Neutrophils # (Auto) 3.98 1.4-6.5 K/uL Lymphocytes # (Auto) 0.69 1.2-3.4 K/uL Monocytes # (Auto) 0.70 0.11-0.59 K/uL Eosinophils # (Auto) 0.00 0-0.5 K/uL Basophils # (Auto) 0.01 0-0.2 K/uL RDW Standard Deviation 48.1 36.4-46.3 fL RDW Coefficient of Variation 13.9 11.5-14.5 % Immature Granulocyte % (Auto) 0.2 % Immature Granulocyte # (Auto) 0.01 0.00-0.02 K/uL Sodium Level 131 136-145 mmol/L Potassium Level 4.0 3.5-5.1 mmol/L Chloride Level 98 98-107 mmol/L Carbon Dioxide Level 24 21-32 mmol/L Anion Gap 9.0 3-11 mmol/L Blood Urea Nitrogen 21 7-18 mg/dl Creatinine 1.25 0.60-1.40 mg/dl Est Creatinine Clear Calc Drug Dose 44.8 ml/min Estimated GFR () 66.3 Estimated GFR (Non- 57.2 BUN/Creatinine Ratio 16.6 10-20 Random Glucose 137 70-99 mg/dl Calcium Level 9.2 8.5-10.1 mg/dl Total Bilirubin 0.6 0.2-1 mg/dl Direct Bilirubin 0.2 0-0.2 mg/dl Aspartate Amino Transf (AST/SGOT) 37 15-37 U/L Alanine Aminotransferase (ALT/SGPT) 85 12-78 U/L Alkaline Phosphatase 62 45-117 U/L Troponin I < 0.015 0-0.045 ng/ml Pro-B-Type Natriuretic Peptide 80 0-900 pg/ml Total Protein 8.0 6.4-8.2 gm/dl Albumin 3.8 3.4-5.0 gm/dl Lipase 82 73-393 U/L Lactic Acid Level 2.0 0.4-2.0 mmol/L Microbiology Results 12/22/17 Blood Culture, Received Pending 12/22/17 Blood Culture, Received Pending Diagnostic Radiology CT CHEST IMPRESSION: 1. Bronchovascular distribution of groundglass and consolidative opacities within the basal segments of the left greater than right lower lobes suggest bronchopneumonia or less likely aspiration pneumonitis. 2. No acute aortic pathology or evidence of pulmonary thromboembolic disease. 3. Emphysema. 4. No pathologic adenopathy. CXR IMPRESSION: No active disease in the chest. Impression H&P v2 Impression Assessment and Plan Community-acquired pneumonia Immunocompromised patient -Admit to [facility] -Patient presenting with productive cough for 3 weeks, failed outpatient treatment; in the ED CT scan showing bibasilar bronchopneumonia -As an outpatient patient was on amoxicillin, clarithromycin and Levaquin; given patient's immunocompromised state with history of multiple myeloma status post stem cell transplant and currently on oral chemotherapy, will place patient on cefepime, check MRSA nasal swab and if positive will add vancomycin -Blood and sputum cultures -Afebrile, stable WBC -Influenza negative -Do not suspect sepsis History multiple myeloma -S/P stem cell transplant December 2016 -Case discussed with Dr. Mcdonald, will continue Revlimid Thrombocytopenia -Due to multiple myeloma and chemotherapy -Platelets at baseline, no signs of bleeding Depression -Continue buspirone Diet-controlled diabetes -Monitor BSG -Hgb A1c 6.2 11/2017 DVT prophylaxis -SCDs due to thrombocytopenia Disposition -In my clinical judgment this beneficiary meets acute admission criteria, established by [facility], that includes being hospitalized through two midnights. Attending addendum: Patient seen and examined care coordinated with Natalie stout PA-C This is a 72-year-old with history of multiple myeloma status post stem cell transplant presented to ER with productive cough for 3 weeks, failed outpatient treatment Physical exam: Please refer to physical exam by Natalie stout PA-C Assessment and plan: Pneumonia in the setting of immunocompromised patient: Multiple myeloma/status post stem cell transplant Remained stable hemodynamically Patient will be empirically treated with IV cefepime order for blood and sputum culture Discussed with hematology oncology Dr. Mcdonald patient will continue on Revlimid to prevent stem cell transplant withdrawal please refer to further documentation by Natalie stout PA-C for discussion of other chronic issues Lucille Ortiz MD Resuscitation Status VTE Prophylaxis Will order VTE Prophylaxis: Yes Physical Exam (per Admitting): General Appearance: WD/WN, no apparent distress Head: normocephalic, atraumatic Eyes: normal inspection, EOMI, sclerae normal ENT: hearing grossly normal, + pertinent finding (Mucous membranes moist) Neck: supple, no JVD, trachea midline Respiratory/Chest: no respiratory distress, + decreased breath sounds Cardiovascular: regular rate, rhythm, no edema, normal peripheral pulses Abdomen/GI: normal bowel sounds, non tender, soft, no organomegaly Extremities/Musculoskelatal: normal inspection, no calf tenderness, normal capillary refill Neurologic/Psych: no motor/sensory deficits, alert, normal mood/affect, oriented x 3 Skin: normal color, warm/dry Hospital Course Community-acquired pneumonia Immunocompromised patient -Patient presenting with productive cough for 3 weeks, failed outpatient treatment; in the ED CT scan showing bibasilar bronchopneumonia -As an outpatient patient was on amoxicillin, clarithromycin and Levaquin; -Given patient's immunocompromised state with history of multiple myeloma status post stem cell transplant and currently on oral chemotherapy, -Started on cefepime, check MRSA nasal swab and if positive will add vancomycin -Blood and sputum cultures-pending -Does not have any neutropenia and/or pancytopenia -Influenza negative -Do not suspect sepsis -We will add Hycodan to suppress cough -clinically a lot better -Exertional SOB is better -CXR on 12/25 is not showing any infiltration -2 steps today ,likely discharge today History multiple myeloma -S/P stem cell transplant December 2016 -Case discussed with Dr. Mcdonald, will continue Revlimid -no acute issue now Thrombocytopenia -Due to multiple myeloma and chemotherapy -Platelets at baseline, no signs of bleeding -Platelets 88 today Depression -Continue buspirone Diet-controlled diabetes -Monitor BSG -Hgb A1c 6.2 11/2017 DVT prophylaxis -SCDs due to thrombocytopenia Disposition -In my clinical judgment this beneficiary meets acute admission criteria, established by [facility], that includes being hospitalized through two midnights. -Check CXR in AM-no pneumonia Discharge home today Total time spent on discharge = 35 minutes This includes examination of the patient, discharge planning, medication reconciliation, and communication with other providers. Discharge Instructions Date of Service Dec 25, 2017. Admission Reason for Admission: Pneumonia Discharge Discharge Diagnosis / Problem: Pneumonia Discharge Goals Goal(s): Prevent Disease Progression Activity Recommendations Activity Limitations: resume your previous activity . Instructions / Follow-Up Instructions / Follow-Up Dr Vernon on 12/29/17 at 12:45PM Current Hospital Diet Patient's current hospital diet: AHA Diet (Heart Healthy) Discharge Diet Recommended Diet: AHA Diet (Heart Healthy) Pending Studies Studies pending at discharge: no Laboratory Results Hemoglobin A1c Test 11/04/17 08:04 Range/Units Estimated Average Glucose 131 mg/dl Hemoglobin A1c 6.2 H 4.5-5.6 % Lipid Panel Test 11/04/17 08:04 Range/Units Triglycerides Level 86 0-150 mg/dl Cholesterol Level 137 0-200 mg/dl HDL Cholesterol 71 mg/dl Cholesterol/HDL Ratio 1.9 LDL Cholesterol, Calculated 49 mg/dl Medical Emergencies . Who to Call and When: Medical Emergencies: If at any time you feel your situation is an emergency, please call 911 immediately. . Non-Emergent Contact Non-Emergency issues call your: Primary Care Provider . Past History Medical & Surgical History: (1) Bronchopneumonia (2) GERD (gastroesophageal reflux disease) (3) Multiple myeloma (4) DM type 2 (diabetes mellitus, type 2) (5) S/P bunionectomy (6) H/O sinus surgery (7) H/O arthroscopic knee surgery (8) Hx of cholecystectomy (9) History of carpal tunnel surgery . "Provider Documentation" section prepared by Carolina Turner. . <Electronically signed by Carolina Turner M.D.> Signed: 12/25/17 [id number] Additional Copies To Maryann Vernon M.D.
[2017-12-26] MEDS ORDERED: LEVOFLOXACIN 750 MG TAB PO SCH (11:00)
== END 2017-12-25 14:54 | disposition home or self-care (01) | DRG 194 ==
LOC: C.EDB 12:01 → C.MS4W 16:26 → ENRESERV 16:44
PROVIDERS: ADMIT Hospitalist; ATTEND Internal Medicine
DX: J18.0 Bronchopneumonia, unspecified organism (principal); C90.00 Multiple myeloma not having achieved remission; Z94.84 Stem cells transplant status; E11.9 Type 2 diabetes mellitus without complications; K21.9 Gastro-esophageal reflux disease without esophagitis; I10 Essential (primary) hypertension; F32.9 Major depressive disorder, single episode, unspecified; D69.6 Thrombocytopenia, unspecified; Z79.82 Long term (current) use of aspirin; Z79.899 Other long term (current) drug therapy; Z87.891 Personal history of nicotine dependence